=== PATIENT | male | born 2000 | race Two or more races ===

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

== ENCOUNTER 2021-03-10 12:33 | Emergency (ER) | payer OTHER, SELFPAY ==
[2021-03-10 12:55] VITALS: BP 124/81; PULSE 91; RESP 16; TEMP 36.9; O2SAT 98; BMI 32.5
--- NOTE | 2021-03-10 13:26 | ED_ITS ---
HPI - Ear Problem General Chief complaint: Ear Problems Stated complaint: Ear Pain Time Seen by Provider: 03/10/21 13:26 Source: patient Mode of arrival: ambulatory Limitations: no limitations History of Present Illness HPI Narrative: 21 y/o male presenting with left ear pain and clogging sensation with decreased hearing for the last few days. He has had issues with ear wax in the past and has been using Deborx drops without effect. He denies pain, fever, chills, drainage, headache, tooth ache, or nasal congestion. Left ear is worse than the right. MD Complaint: decreased hearing and foreign body Location: bilateral Duration: constant Severity: moderate Relieving factors: nothing Exacerbating factors: nothing Discharge from ear: no Associated symptoms ear: decreased hearing Treatment prior to arrival: eardrops and attempt at ear wax removal Related Data Previous Rx's Medication Instructions Recorded cholecalciferol (vitamin D3) 25 25 mcg PO DAILY 90 Days #90 cap 12/06/20 mcg (1,000 unit) capsule Allergies Allergy/AdvReac Type Severity Reaction Status Date / Time No Known Allergies Allergy Verified 12/06/20 17:13 Review of Systems Review of Systems: Constitutional: No Fever, No Chills ENT/Mouth: No sore throat, No Rhinorrhea, No Swallowing Difficulty, +decreased hearing Eyes: No Eye Pain, No Swelling, No Redness Cardiovascular: No Chest Pain, No SOB Respiratory: No Cough, No Sputum Skin: No Skin Lesions, No rash Neuro: No Weakness, No Numbness, No Dizziness, No Headache Heme/Lymph: No Lymphadenopathy PMFSH Past Medical History Attestation statement: The following information was validated with the patient. Medical History Chronic sinusitis Hypovitaminosis D Mild asthma Obese Tachycardia Surgical History History of tonsillectomy Family History Family History Mother Diabetes Hypertension Father No problems noted. Paternal Grandmother Cancer Paternal Grandfather Cancer Paternal Aunt Cancer Social History Social History (Updated 12/06/20 @ 17:14 by Noemy Kendrick MD) Alcohol intake: never Advance Directives: No Advance Directives Information Provided: No Physical Exam Vital Signs: Vital Signs: Last Vital Signs Temp 98.5 F 03/10/21 12:55 Pulse 91 03/10/21 12:55 Resp 16 03/10/21 12:55 BP 124/81 03/10/21 12:55 Pulse Ox 98 03/10/21 12:55 Body Mass Index 32.5 Appearance: Alert. Oriented X3. No acute distress. Eyes: Pupils equal, round and reactive to light. ENT: Pharynx normal. Bilateral cerumen impaction. Unable to visualize TM. Neck: Normal inspection. Neck supple. No LAD. CVS: Normal heart rate and rhythm. Pulses normal. Respiratory: No respiratory distress. Breath sounds normal. Skin: Skin warm and dry. Normal skin color. Normal skin turgor. No rashes. Neuro: Oriented X 3. No motor deficit. No sensory deficit. Course Course Course Narrative: 21 y/o male presenting with decreased hearing and clogging in his ears. Exam with bilateral cerumen impaction. Successful removal. Stable f or d/c home. Procedures Ear Wax Removal Both Ears: Cerumenolytic Used: Colace Results: Re-examined: cerumen removed completely TM Examination: TM(s) intact, normal appearance Ear Canal Exam: bleeding Noted Patient Tolerated Procedure: well Complications: no problems Technique: ear canal irrigated Discharge Plan Discharge Clinical Impression: Bilateral impacted cerumen Patient Disposition: Home, Self-Care Instructions: Carbamide Peroxide (Into the ear) Additional Instructions: Continue to use the Debrox drops in 2 days. Do not use anything in your ears for the next 2 days. Follow up with your doctor as needed. Prescriptions: No Action cholecalciferol (vitamin D3) 25 mcg (1,000 unit) capsule 25 mcg PO DAILY 90 Days Qty: 90 RF: 3
[2021-03-10] MEDS: Docusate Sodium 100 MG/10 ML LIQUID PO (13:44)
== END 2021-03-10 15:09 | disposition home or self-care (01) ==
PROVIDERS: Emergency Provider Emergency Medicine Emergency Medical Services; PCP Internal Medicine
DX: H61.23 Impacted cerumen, bilateral (principal)
CPT/HCPCS: 69209; 99283

== ENCOUNTER → 2021-04-23 09:01 | Outpatient (BNVA) | payer OTHER, SELFPAY | PROVIDERS: PCP Internal Medicine; Referring Provider Internal Medicine; Visit Provider Internal Medicine | DX: R00.0 Tachycardia, unspecified (principal); R00.2 Palpitations; E66.09 Other obesity due to excess calories; Z68.32 Body mass index [BMI] 32.0-32.9, adult | CPT/HCPCS: 99202 ==

== ENCOUNTER → 2021-06-14 12:52 | Outpatient (REF) | payer OTHER, SELFPAY ==
--- NOTE | 2021-06-14 12:57 | CA_ITS ---
Transthoracic Echocardiogram Patient (Last, First, Middle): Chavo Restrepo, Gender: Male Date of : 2000 Age: 21 Procedure Date: 06/14/2021 Procedure Type: Transthoracic Echocardiogram Location: OP Height: 175.26 cm Weight: 97.98 kg BSA: 2.13 m2 Heart Rate: bpm BP: 110 / 70 mmHg Key Account Representative: KATELYN/CARLEY Referring MD: Donny Vargas MD Symptoms: R00.0 - Tachycardia, unspecified Study Quality: Good ECG Rhythm: Sinus Conclusions: - The left ventricular systolic function is low normal. The calculated ejection fraction is 54% by biplane method. - No obvious valvular pathology seen on this study. Findings Left Ventricle Normal left ventricular cavity size. There is normal left ventricular wall thickness. The left ventricular systolic function is low normal. The calculated ejection fraction is 54% by biplane method. There is no evidence of regional wall motion abnormalities. LV peak GLS -16.4%. Right Ventricle Normal right ventricular cavity size and systolic function. Atria Both atria are normal in size. Aortic Valve There is a normal trileaflet aortic valve. There is no aortic valve stenosis. There is no aortic valve regurgitation. Mitral Valve The mitral valve appears normal. There is no mitral valve regurgitation. There is no mitral valve stenosis. Pulmonic Valve The pulmonic valve was not well visualized. Tricuspid Valve Normal tricuspid valve structure. There is trace tricuspid valve regurgitation. The pulmonary artery systolic pressure is normal. Great Vessels The aortic annulus, sinuses of valsalva, asc aorta, and aortic arch are normal in size. Venous The inferior vena cava is normal in size and collapses greater than 50% with inspiration. Pericardium/Pleural There is no evidence of pericardial effusion. Prior Study Comparison No prior study available for comparison. Recommendations, Care & Conclusions No obvious valvular pathology seen on this study. Measurements 2D Linear Measurements IVSd: 0.71 0.6-0.9/0.6-1.0 cm LVIDd: 4.30 3.9-5.3/4.2-5.9 cm LVIDd Index: 2.02 2.4-3.2/2.2-3.1 cm/m2 LVIDs: 2.88 2.0-3.6 cm LVPWd: 0.70 0.7-1.1 cm Ao Root: 2.80 2.1-3.5 cm LA Diam: 3.20 2.7-3.8/3.0-4.0 cm LAIDs Index: 1.50 1.5-2.3 cm/m2 LV Mass: 110.42 67-162/88-224 g LV Mass Index: 51.84 43-95/49-115 g/m2 LVOT Diam: 2.00 3.0+(-)1.3 cm 2D Systolic Function EF 4C: 51.70 >55% EF 2C: 54.20 >55% EF BiP: 53.80 >55% Mitral Valve MV Pk E: 0.95 MV PK A: 0.72 MV Decel Time: 151.00 E/A: 1.30 E'Lateral: 16.30 E'Medial: 9.90 E/E' Med: 9.60 E/E' Lat: 5.80 PHT: 44.00 MVA PHT: 5.00 Decel [place]: 6.26 Aortic Valve AoV Pk Adelfo: 1.34 AoV Mn Adelfo: 0.93 AoV VTI: 0.24 AoV Pk Grad: 7.00 Aov Mn Grad: 4.00 ADAMARIS Cont.VTI: 2.68 LVOT LVOT Pk Adelfo: 1.17 LVOT Mn Adelfo: 0.87 LVOT VTI: 0.21 LVOT Pk Grad: 5.00 LVOT Mn Grad: 3.00 LVOT Diam: 2.00 LVOT Area: 3.14 Diastolic Function MV Pk E: 0.95 MV Pk A: 0.72 E/A: 1.30 E'Medial: 9.90 E/E' Med: 9.60 E' Laterial: 16.30 E/E' Lat: 5.80 Right Ventricle TAPSE (mm): 1.84 TVS' Adelfo: 11.40 Tricuspid Valve TR Pk Adelfo: 1.41 TR Pk Grad: 8.00 RA Press: 3.00 RVSP: 11.00 Great Vessels Aorta Ao Root-2D: 2.80 2.0-3.7 cm Ao Asc: 2.90 2.1-3.4 cm Ao Arch: 2.20 Updated in Other Vendor System with Status of Final Donny Vargas MD electronically signed on 06/15/2021 2:00:26 PM with status of Final
== END ==
LOC: HO.CARD 12:52
PROVIDERS: PCP Internal Medicine; Visit Provider Internal Medicine
DX: R00.0 Tachycardia, unspecified (principal)
CPT/HCPCS: 93306

== ENCOUNTER → 2021-06-26 13:07 | Outpatient (BNVA) | payer OTHER, SELFPAY | PROVIDERS: PCP Internal Medicine; Referring Provider Internal Medicine; Visit Provider Nurse Practitioner Family | DX: E66.09 Other obesity due to excess calories (principal); R00.0 Tachycardia, unspecified; R00.2 Palpitations; Z68.32 Body mass index [BMI] 32.0-32.9, adult | CPT/HCPCS: 99212 ==

== ENCOUNTER 2021-11-06 07:51 | Outpatient (REF) | payer OTHER, SELFPAY ==
[2021-11-06 08:12] LABS: MANUAL DIFF FLAG NO
[2021-11-06 08:45] LABS: Basophils Percent Auto 0.2 % (0-2); Eosinophils Absolute Auto 0.2 X10*3/uL (0.0-0.4); Eosinophils Percent Auto 2.3 % (0-4); Hemoglobin 15.7 g/dl (14.0-18.0); Imm Gran Abs Auto 0.01 X10*3/uL (0.00-0.03); Imm Gran Pct Auto 0.1 % (0.0-0.4); Lymphocytes Absolute Auto 3.1 X10*3/uL (1.2-4.9); Lymphocytes Percent Auto 34.7 % (20-40); Mean Corpuscular HGB Conc 31.4 g/dl (31.0-36.0); Mean Corpuscular Hemoglobin 24.8 pg (27.0-33.0); Mean Corpuscular Volume 79.1 fL (80.0-98.0); Mean Platelet Volume 11.7 fL (9.4-12.4); Monocytes Absolute Auto 0.7 X10*3/uL (0.1-1.2); Monocytes Percent Auto 8.2 % (2-11); Neutrophils Absolute Auto 4.8 x10*3/uL (2.0-8.3); Neutrophils Percent Auto 54.5 % (45-73); Platelet Count 273 X10*3/uL (160-400); Red Blood Count 6.32 X10*6/uL (4.60-5.80); Red Cell Distribution Width 15.3 % (11.0-16.0); White Blood Count 8.8 X10*3/uL (4.8-10.8)
[2021-11-06 09:05] LABS: Alanine Aminotransferase 33 U/L (0-40); Albumin Level 4.8 g/dL (3.5-5.0); Alkaline Phosphatase 98 U/L (39-117); Anion Gap 13 (12-20); Aspartate Amino Transferase 19 U/L (5-37); Bilirubin Total 0.5 mg/dL (0.0-1.0); Blood Urea Nitrogen 11 mg/dL (9-16); Calcium 9.9 mg/dL (8.4-10.2); Carbon Dioxide 27 mmol/L (22-29); Chloride 104 mmol/L (96-108); Cholesterol 176 mg/dL; Estimated Glomerular Filt Rate > 60; Glucose Fasting 82 mg/dL (60-99); HDL Cholesterol 37 mg/dL; LDL Cholesterol Calculated 127 mg/dl; Potassium 4.3 mmol/L (3.3-5.1); Sodium 140 mmol/L (135-145); Total Protein 7.6 g/dL (6.5-8.0); Triglycerides 61 mg/dL
[2021-11-11 13:42] LABS: Vitamin D 25-OH, D2 <4 ng/mL; Vitamin D 25-OH, D3 30 ng/mL; Vitamin D 25-OH, Total 30 ng/mL (30-100)
== END 2021-11-06 07:52 | disposition home or self-care (01) ==
LOC: HO.LAB 07:51
PROVIDERS: PCP Internal Medicine; Visit Provider Internal Medicine
DX: Z00.00 Encounter for general adult medical examination without abnormal findings (principal); E55.9 Vitamin D deficiency, unspecified; E78.5 Hyperlipidemia, unspecified; R42 Dizziness and giddiness
CPT/HCPCS: 36415; 80053; 80061; 82306; 85025

== ENCOUNTER → 2021-12-03 08:55 | Outpatient (REF) | payer OTHER, SELFPAY ==
--- NOTE | 2021-12-03 09:06 | CA_ITS ---
Transthoracic Echocardiogram Patient (Last, First, Middle): Chavo Restrepo, Gender: Male Date of : 2000 Age: 21 Procedure Date: 12/03/2021 Procedure Type: Transthoracic Echocardiogram Location: OP Height: 175.26 cm Weight: 113.4 kg BSA: 2.27 m2 Heart Rate: bpm BP: 110 / 70 mmHg Md Senior Research Scientist: SB Referring MD: Jaky Azevedo PIE FILLING MIXERScott Symptoms: R00.2 - Palpitations Study Quality: Good ECG Rhythm: Sinus Conclusions: - The left ventricular systolic function is normal. The visually estimated ejection fraction is between 55-60%. - There is mildly decreased right ventricular systolic function. Findings Left Ventricle Normal left ventricular cavity size. There is normal left ventricular wall thickness. The left ventricular systolic function is normal. The visually estimated ejection fraction is between 55-60%. There is no evidence of regional wall motion abnormalities. Diastolic function is normal for age. LV peak GLS -16.3% (mildly reduced). Right Ventricle Normal right ventricular cavity size. There is mildly decreased right ventricular systolic function. Venous The inferior vena cava is normal in size and collapses greater than 50% with inspiration. Prior Study Comparison Changes noted compared to prior study dated: 06/14/2021. RV systolic function slightly reduced. Measurements 2D Linear Measurements IVSd: 0.89 0.6-0.9/0.6-1.0 cm LVIDd: 4.82 3.9-5.3/4.2-5.9 cm LVIDd Index: 2.12 2.4-3.2/2.2-3.1 cm/m2 LVIDs: 3.37 2.0-3.6 cm LVPWd: 0.67 0.7-1.1 cm LV Mass: 154.26 67-162/88-224 g LV Mass Index: 67.96 43-95/49-115 g/m2 Mitral Valve MV Pk E: 0.77 MV PK A: 0.60 MV Decel Time: 133.00 E/A: 1.30 E'Lateral: 12.90 E'Medial: 10.10 E/E' Med: 7.60 E/E' Lat: 5.90 PHT: 39.00 MVA PHT: 5.64 Decel [place]: 5.76 Diastolic Function MV Pk E: 0.77 MV Pk A: 0.60 E/A: 1.30 E'Medial: 10.10 E/E' Med: 7.60 E' Laterial: 12.90 E/E' Lat: 5.90 Right Ventricle TAPSE (mm): 15.10 TVS' Adelfo: 10.60 Tricuspid Valve RA Press: 3.00 Updated in Other Vendor System with Status of Final Donny Vargas MD electronically signed on 12/03/2021 10:16:12 AM with status of Final
== END ==
LOC: HO.CARD 08:55
PROVIDERS: PCP Internal Medicine; Visit Provider Nurse Practitioner Family
DX: R00.2 Palpitations (principal); R00.0 Tachycardia, unspecified
CPT/HCPCS: 93308; 93356

== ENCOUNTER → 2022-02-27 12:48 | Outpatient (BNVA) | payer OTHER, SELFPAY | PROVIDERS: PCP Internal Medicine; Referring Provider Internal Medicine; Visit Provider Internal Medicine | DX: R00.0 Tachycardia, unspecified (principal); R00.2 Palpitations; E66.09 Other obesity due to excess calories; Z68.32 Body mass index [BMI] 32.0-32.9, adult | CPT/HCPCS: 93005; 99212 ==

== ENCOUNTER 2022-10-02 12:38 | Outpatient (REF) | payer OTHER, SELFPAY ==
[2022-10-02 13:46] LABS: Influenza A PCR NEGATIVE (Negative); Influenza B PCR NEGATIVE (Negative); Resp Syncy Virus RNA Qual PCR NEGATIVE (Negative); SARS COV2 PCR INHOUSE NEGATIVE (Negative)
== END 2022-10-02 12:39 | disposition home or self-care (01) ==
LOC: HO.LAB 12:38
PROVIDERS: Visit Provider Internal Medicine
DX: R09.89 Other specified symptoms and signs involving the circulatory and respiratory systems (principal); Z20.822 Contact with and (suspected) exposure to COVID-19
CPT/HCPCS: 0241U

== ENCOUNTER → 2022-12-31 12:55 | Outpatient (REF) | payer OTHER, SELFPAY ==
--- NOTE | 2022-12-31 12:57 | CA_ITS ---
Transthoracic Echocardiogram Patient (Last, First, Middle): Chavo Restrepo, Gender: Male Date of : 2000 Age: 22 Procedure Date: 12/31/2022 Procedure Type: Transthoracic Echocardiogram Location: OP Height: 175.26 cm Weight: 99.79 kg BSA: 2.15 m2 Heart Rate: bpm BP: 120 / 70 mmHg Administrative Law Judge: CARLEY Referring MD: Donny Vargas MD Environmental Professional: Eliot Sylvester MD Symptoms: I42.9 - Cardiomyopathy, unspecified Study Quality: Adequate ECG Rhythm: Sinus Conclusions: - 1. Normal measured LV ejection fraction 55-60% with mildly reduced global longitudinal strain with normal diastolic filling pattern 2. Normal cardiac valvular Doppler 3. Normal RV systolic pressure 4. No gross pericardial effusion Findings Left Ventricle Normal left ventricular size, thickness, and systolic function. The visually estimated ejection fraction is between 55-60%. Spectral Doppler is indicative of a normal filling pattern. Peak GLS is -16.6%, which is mildly reduced. Right Ventricle Normal right ventricular cavity size and systolic function. Atria Both atria are normal in size. Interatrial shunt cannot be excluded. Aortic Valve Normal aortic valve structure and function. There is no aortic valve stenosis. There is no aortic valve regurgitation. Mitral Valve Normal mitral valve structure and function. There is trace mitral valve regurgitation. There is no mitral valve stenosis. Pulmonic Valve The pulmonic valve is likely normal. Tricuspid Valve Normal tricuspid valve structure. There is trace tricuspid valve regurgitation. The right ventricular systolic pressure is normal. The right ventricular systolic pressure is 20 mmHg. Normal right atrial pressure. There is no evidence of pulmonary hypertension. Great Vessels All visible segments of the aorta are normal in size. The pulmonary artery was not well visualized. Venous The inferior vena cava is normal in size and collapses greater than 50% with inspiration. Pericardium/Pleural There is no evidence of pericardial effusion. Prior Study Comparison No significant change compared to prior study dated: 12/03/2021. Measurements 2D Linear Measurements IVSd: 0.90 0.6-0.9/0.6-1.0 cm LVIDd: 4.73 3.9-5.3/4.2-5.9 cm LVIDd Index: 2.20 2.4-3.2/2.2-3.1 cm/m2 LVIDs: 3.52 2.0-3.6 cm LVPWd: 0.88 0.7-1.1 cm LA Diam: 3.70 2.7-3.8/3.0-4.0 cm LAIDs Index: 1.72 1.5-2.3 cm/m2 LV Mass: 177.27 67-162/88-224 g LV Mass Index: 82.45 43-95/49-115 g/m2 LVOT Diam: 2.00 3.0+(-)1.3 cm 2D Systolic Function EF 4C: 59.50 >55% EF 2C: 55.80 >55% EF BiP: 57.80 >55% Mitral Valve MV Pk E: 1.02 MV PK A: 0.46 MV Decel Time: 166.00 E/A: 2.20 E'Lateral: 14.80 E'Medial: 7.72 E/E' Med: 13.20 E/E' Lat: 6.90 PHT: 49.00 MVA PHT: 4.49 Decel [place]: 6.14 Aortic Valve AoV Pk Adelfo: 1.19 AoV Mn Adelfo: 0.86 AoV VTI: 0.26 AoV Pk Grad: 6.00 Aov Mn Grad: 3.00 ADAMARIS Cont.VTI: 2.37 LVOT LVOT Pk Adelfo: 0.97 LVOT Mn Adelfo: 0.69 LVOT VTI: 0.20 LVOT Pk Grad: 4.00 LVOT Mn Grad: 2.00 LVOT Diam: 2.00 LVOT Area: 3.14 Diastolic Function MV Pk E: 1.02 MV Pk A: 0.46 E/A: 2.20 E'Medial: 7.72 E/E' Med: 13.20 E' Laterial: 14.80 E/E' Lat: 6.90 Right Ventricle TAPSE (mm): 22.40 TVS' Adelfo: 10.30 Tricuspid Valve TR Pk Adelfo: 2.08 TR Pk Grad: 17.00 RA Press: 3.00 RVSP: 20.00 Great Vessels Aorta Sinus of Valsalva: 2.77 2.0-3.[address] [place]: 2.18 1.7-3.4 cm Ao Asc: 2.30 2.1-3.4 cm Updated in Other Vendor System with Status of Final Eliot Sylvester MD electronically signed on 01/01/2023 5:11:05 PM with status of Final
== END ==
LOC: HO.CARD 12:55
PROVIDERS: PCP Internal Medicine; Visit Provider Internal Medicine
DX: I42.9 Cardiomyopathy, unspecified (principal)
CPT/HCPCS: 93306; 93356

== ENCOUNTER 2023-01-14 13:00 | Outpatient (RCR) | payer OTHER, SELFPAY ==
--- NOTE | 2022-12-13 12:00 | MHC.PT.EP ---
[facility] [place] Office [place] Office [place] Office [address] Addison Stephenson [address] [phone] F: [phone] F: [phone] F: [phone] F: [phone] Physical Therapy Plan of Care Date of Evaluation: Date of Surgery: Diagnosis: low back pain Assessment: Patient is a 22 year old R handed male who presents with s/s consistent with low back pain. 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 Patient past medical history is unremarkable. Current impairments include pain, posture, ROM, strength, flexibility, body mechanics, activity tolerance and functional mobility. Functional limitations include decreased ability to walk, stand, lift, carry, push, pull, sit and work. Patient is motivated with good rehab potential. Skilled PT will address impairments and functional limitations in order to achieve goals. Frequency and Duration: The patient will be seen 2x/week for 5 weeks Short Term Goals: I with HEP - 2 weeks demo proper body mechanics with all transfers without cues - 3 weeks 90/90 lacking 20 or less - 3 weeks stable innom - 3 weeks Usp Goals: Demo improved core stab - 5 weeks Improved work tolerance, standing, walking, sitting - 5 weeks Oswestry 20% or better - 5 weeks hip strength 4+/5 grossly - 5 weeks Treatment Plan: Modalities to reduce pain, spasms and effusion. Manual therapy to restore motion and function. Therapeutic exercise to improve strength and flexibility. Neuromuscular re-education for posture and balance. Therapeutic activities to return to functional activities of daily living. Electronically signed by: Maximo Funk, PT Please sign and return to therapist. Thank you for your referral.
--- NOTE | 2023-02-07 08:18 | MHC.PT.DC ---
[facility] [place] Office [place] Office [place] Office [address] Addison Stephenson [address] [phone] F: [phone] F: [phone] F: [phone] F: [phone] Physical Therapy Discharge Report Diagnosis: low back pain Date of Surgery: Date of Evaluation: 12/13/22 Date of Discharge: 02/07/23 Treatments to Date: 8 Cancellations to Date: No Shows to Date: Discharge Status: Visit Non-compliance Discharge Summary: Patient with multiple no shows and cancellations, DC'd due to poor compliance with facility attendance policy. Patient has an HEP to continue on own. Per last tx note, patient was progressing well and did not have pain. Electronically signed by: Kecia Bedoya PT Please sign and return to therapist. Thank you for your referral.
== END 2023-02-07 08:18 | disposition home or self-care (01) ==
LOC: HO.PTCHIC 13:00
PROVIDERS: PCP Internal Medicine; Visit Provider Internal Medicine
DX: M54.50 Low back pain, unspecified (principal)
CPT/HCPCS: 97110; 97161

== ENCOUNTER 2023-02-27 12:24 | Outpatient (AMB) | payer OTHER, SELFPAY ==
--- NOTE | 2023-02-27 12:33 | A.OFFVIS_ITS ---
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 In the past, he was seen in consultation regarding tachycardia. He was describing symptoms of heart racing with physical activities like climbing stairs and some shortness of breath. Obese as well as with sedentary lifestyle. However no major comorbidities otherwise. No history of any cardiomyopathy or congestive heart failure or anything else cardiac related. No significant family history for cardiac issues either. His cardiac testing at shown mildly diminished myocardial strain but normal LVEF. Overall, he feels fine. He states he really does not have any cardiac symptoms these days. Getting along okay. [facility] Medical History Chronic sinusitis Dizziness Hypovitaminosis D Mild asthma Obese Physical exam Tachycardia Surgical History History of tonsillectomy Family History Mother Diabetes Hypertension Father No problems noted. Paternal Grandmother Cancer Paternal Grandfather Cancer Paternal Aunt Cancer Social History Housing: Apartment Alcohol intake: never Patient Tobacco Use Status: Never used Tobacco e-Cigarette/Vaping Use: Never Used Second Hand Smoke Exposure: No service: No Current occupational status: employed Current occupational exposures/hazards: No Cognitive needs: No Hearing needs: No Vision needs: No Review of Systems Const Denies weakness ENT Denies dizziness Card Denies chest pain, Denies chest pain with activity, Denies syncope, Denies rapid heart rate, Denies pedal edema, Denies edema, Denies leg edema, Denies lightheadedness, Denies palpitations, Denies dyspnea, Denies dyspnea on exertion and Denies orthopnea Resp Denies cough, Denies dyspnea and Denies dyspnea on exertion GI Denies hematochezia and Denies change in stool character Musc Denies abnormal gait, Denies muscle cramps, Denies muscle weakness, Denies numbness, Denies radiating pain into limb and Denies tingling Neuro Denies abnormal gait, Denies dizziness, Denies syncope, Denies numbness, Denies tingling and Denies weakness Endo Denies palpitations Physical Exam Vital Signs: Last Vital Signs Pulse 66 02/27/23 12:34 BP 112/78 02/27/23 12:34 BMI result Body Mass Index 36.6 Const General: comfortable and no acute distress Orientation/consciousness: patient oriented x3 HEENT Other: Unremarkable Head: Yes normal to inspection Neck Neck: Yes normal visual inspection Chest Chest palpation & inspection: normal inspection of the chest Resp Auscultation: clear to auscultation bilaterally Cardio Palpation: normal PMI Heart sounds: S1 normal heart sound present, S2 normal heart sound present, no gallops, no murmurs and no rubs GI Palpation (GI): Soft to palpation Back/Spine/Pelvis Other: unremarkable Skin General skin exam: no rashes or lesions noted Neuro General: patient oriented x3 Extrem General: Yes normal to inspection Psych Mental Status: mental status grossly normal Office Procedures EKG Details: EKG with sinus rhythm, sinus arrhythmia; no significant ST-T changes and otherwise unremarkable. [place]. [id number], Complete Assessment & Plan Assessment & Plan (1) Abnormal cardiovascular function study: Code(s): R94.30 - Abnormal result of cardiovascular function study, unspecified (2) Obese: Code(s): E66.9 - Obesity, unspecified Qualifiers: Body mass index: BMI 32.0-32.9 Obesity classification: adult class 1 (BMI 30 - 34.9) Obesity type: due to excess calories Serious obesity comorbidity presence: without serious comorbidity Qualified Code(s): E66.09 - Other obesity due to excess calories; Z68.32 - Body mass index [BMI] 32.0-32.9, adult Plan Cardiac studies reviewed. Echocardiogram with LVEF 55-60%. Peak global longitudinal strain is-16.6%, slightly reduced. It has been in this range in the previous studies as well. In the Holter monitor, underlying rhythm was sinus with an average rate of 92/Min; there was sinus tachycardia but no other significant arrhythmias. Fatigue in diary was associated with sinus rhythm rather. Overall, slightly reduced myocardial strain, but otherwise unremarkable cardiac testing. Not clear if it is a true reduction or if there is any technical component. Overall, reassurance only. Hopefully can lose some weight and get some conditioning. Increase physical activity as much able. We will reassess him in 2 years with another echocardiogram with strain assessment. Coding Level of Care Code Est Pt Level 3 (70890) Diagnoses Abnormal cardiovascular function study R94.30 Obese E66.09; Z68.32 Body mass index: BMI 32.0-32.9 Obesity classification: adult class 1 (BMI 30 - 34.9) Obesity type: due to excess calories Serious obesity comorbidity presence: without serious comorbidity CPT Codes EKG - CPT: 13544-[id number], Complete ([id number])
[2023-02-27 12:34] VITALS: BP 112/78; PULSE 66; BMI 36.6
== END 2023-02-27 12:48 | disposition home or self-care (01) ==
PROVIDERS: Visit Provider Internal Medicine
DX: R94.30 Abnormal result of cardiovascular function study, unspecified (principal); E66.09 Other obesity due to excess calories; Z68.32 Body mass index [BMI] 32.0-32.9, adult
CPT/HCPCS: 93010; 99213

== ENCOUNTER → 2023-02-27 12:24 | Outpatient (BNVA) | payer OTHER, SELFPAY | PROVIDERS: Visit Provider Internal Medicine | DX: R94.30 Abnormal result of cardiovascular function study, unspecified (principal); E66.09 Other obesity due to excess calories; Z68.36 Body mass index [BMI] 36.0-36.9, adult | CPT/HCPCS: 93005; 99212 ==

== ENCOUNTER 2023-03-06 15:32 | Outpatient (AMB) | payer OTHER, SELFPAY ==
--- NOTE | 2023-03-06 15:34 | MHC.PC.OV ---
Vital Signs 03/06/23 15:35 Height 5 ft 9 in Weight 249 lb BMI 36.8 BP 120/84 Blood Pressure Location Lt brachial Position Sitting Intake Visit Reasons: Personal reason Intake Note: Patient here c/o right ear blockage, dizziness Sap Administrator Required: No Accompanied by: Mother Allergies No Known Allergies Allergy (Verified 03/06/23 16:07) Medication List - Last Reconciled 03/06/23 by Noemy Kendrick MD cholecalciferol (vitamin D3) (Vitamin D3) 25 mcg PO DAILY Tobacco use date assessed: 10/16/22 Dental Screening Dental Screen Date: 03/06/23 Did you have a dental visit in the last 12 months?: Yes Did you have a dental problem in the last 6 months where you did not have access to dental care?: No Was dental information given to patient?: Patient has dentist HPI HPI Comments History of Present Illness Details This is a 23-year-old male that comes accompanied by mother complaining of ear discomfort and right hearing loss that has been present for few weeks. He also has low vitamin-D and is taking supplements. No ear pain. [facility] Medical History (Updated 03/06/23 @ 16:13 by Noemy Kendrick MD) Chronic sinusitis Dizziness Hypovitaminosis D Mild asthma Obese Physical exam Tachycardia Surgical History History of tonsillectomy Family History Mother Diabetes Hypertension Father No problems noted. Paternal Grandmother Cancer Paternal Grandfather Cancer Paternal Aunt Cancer Social History Housing: Apartment Alcohol intake: never Patient Tobacco Use Status: Never used Tobacco e-Cigarette/Vaping Use: Never Used Second Hand Smoke Exposure: No service: No Current occupational status: employed Current occupational exposures/hazards: No Cognitive needs: No Hearing needs: No Vision needs: No Questionnaire Thrive Questionnaire Date Thrive assessed: 10/16/22 JUNI-7 AMB Questionnaire JUNI-7 Date JUNI - 7 assessed: 10/16/22 Source: Developed by Drs. Kentrell Smith, Fifi Reis, Bolivar Coyne and colleagues, with an educational kimberly from [employer]. Review of Systems Const All systems reviewed & are unremarkable except as noted in HPI and below Eyes Reports no additional complaints, Denies change in vision and Denies other visual disturbances Card Denies chest pain at rest, Denies chest pain with activity, Denies edema, Denies irregular heart rhythm, Denies claudication, Denies dyspnea, Denies dyspnea on exertion, Denies orthopnea, Denies paroxysmal nocturnal dyspnea and Denies slow heart rate Resp Denies cough, Denies dyspnea and Denies dyspnea on exertion GI Denies abdominal pain, Denies change in bowel habits, Denies excessive flatus, Denies nausea and Denies vomiting Denies urinary hesitancy, Denies urinary incontinence and Denies urinary urgency Musc Denies abnormal gait, Denies atrophy, Denies deformity and Denies limited range of motion Skin/Breast Denies bleeding lesions, Denies changing lesions and Denies rash Neuro Denies abnormal gait and Denies lack of coordination Physical exam (Primary Care) Vital Signs: Last Vital Signs BP 120/84 03/06/23 15:35 BMI result Body Mass Index 36.8 Tobacco/Smoking Status: Tobacco use Status Tobacco use date assessed 10/16/22 03/06/23 15:38 Patient Tobacco Use Status Never used Tobacco 03/06/23 15:38 e-Cigarette/Vaping Use Never Used 03/06/23 15:38 Thrive Assessment: Date of Thrive Assessment Date Thrive assessed 10/16/22 03/06/23 15:38 [facility] Ears: external ears normal and TM abnormal dull Eyes General: appearance normal, both eyes and all related structures Eyelids: Yes eyelids normal Conjunctivae: conjunctivae normal Neck Neck: Yes normal visual inspection and Yes supple Resp Effort & Inspection: normal respiratory effort Auscultation: clear to auscultation bilaterally Cardio Jugular venous distension: no JVD Rate: regular rate Rhythm: regular rhythm Heart sounds: S1 normal heart sound present and S2 normal heart sound present Extrem General: Yes full ROM Assessment and Plan Assessment & Plan (1) Hearing loss, right: Code(s): H91.91 - Unspecified hearing loss, right ear Plan: Hearing test ordered. Referred to ENT. (2) Hypovitaminosis D: Code(s): E55.9 - Vitamin D deficiency, unspecified Plan: Continue vitamin-D supplements Orders: Referrals Ear/Nose/Throat Referral H91.91 - Unspecified hearing loss, right ear, H92.09 - Otalgia, unspecified ear Speech and Hearing Referral H91.91 - Unspecified hearing loss, right ear Medications: New amoxicillin-pot clavulanate 875-125 mg 1 tab PO BID 14 tabs 0RF 7 days Coding Level of Care Code Est Pt Level 3 (05049) Diagnoses Hearing loss, right H91.91 Hypovitaminosis D E55.9 Time Spent (min) 17
[2023-03-06 15:35] VITALS: BP 120/84; BMI 36.8
== END 2023-03-06 16:18 | disposition home or self-care (01) ==
PROVIDERS: PCP Internal Medicine; Visit Provider Internal Medicine
DX: H91.91 Unspecified hearing loss, right ear (principal); E55.9 Vitamin D deficiency, unspecified
CPT/HCPCS: 99213

== ENCOUNTER 2023-04-16 11:42 | Outpatient (AMB) | payer OTHER, SELFPAY ==
--- NOTE | 2023-04-16 12:19 | AM.OFFWIN_ITS ---
Intake Vital Signs 04/16/23 12:27 Weight 254 lb BP 116/78 Blood Pressure Location Lt brachial Position Sitting Pulse 105 H Pulse Source Pulse Oximeter Temp 97.2 F Temp Source Temporal Artery Scan Pulse Oximetry (%) 96 Oxygen Delivery Method Room Air Intake Visit Reasons: EP Sore throat/Congestion/fever [phone] Intake Note: Patient here sore throat, fever,congestion and cough which has been present since friday. Patient Tobacco Use Status: Never used Tobacco Allergies No Known Allergies Allergy (Verified 04/16/23 12:20) Do you need a note to return to daycare/school/sports/work: No HPI EP Sore throat/Congestion/fever [phone] HPI Details Patient presents for a sick visit. Reporting symptoms of sinus congest ion, sore throat and difficulty swallowing. Low-grade fever. No family member is sick. No recent travel. Patient reports symptoms of malaise and fatigue. [facility] Medical History Chronic sinusitis Dizziness Hypovitaminosis D Mild asthma Obese Physical exam Tachycardia Surgical History History of tonsillectomy Family History Mother Diabetes Hypertension Father No problems noted. Paternal Grandmother Cancer Paternal Grandfather Cancer Paternal Aunt Cancer Social History Housing: Apartment Alcohol intake: never Patient Tobacco Use Status: Never used Tobacco e-Cigarette/Vaping Use: Never Used Second Hand Smoke Exposure: No service: No Current occupational status: employed Current occupational exposures/hazards: No Cognitive needs: No Hearing needs: No Vision needs: No Physical Exam Vital Signs: Last Vital Signs Temp 97.2 F 04/16/23 12:27 Pulse 105 H 04/16/23 12:27 BP 116/78 04/16/23 12:27 Pulse Ox 96 04/16/23 12:27 Oxygen Delivery Method Room Air 04/16/23 12:27 Const General: cooperative and healthy appearing Nutritional Appearance: well nourished Orientation/consciousness: patient oriented x3 Limitations: no limitations HEENT Head: Yes normal to inspection Eyes General: appearance normal, both eyes and all related structures Neck Neck: Yes normal visual inspection Chest Chest palpation & inspection: normal palpation of entire chest wall Resp Effort & Inspection: normal respiratory effort Neuro General: patient oriented x3 Results AMB Rapid Strep AMB Rapid Strep Negative Last Edit by Terri Ty CMA on 04/16/23 12:38 Results Reviewed Results Reviewed: Laboratory Last Values Strep Scn Rapid Clinic Negative 04/16/23 12:37 Assessment & Plan Assessment & Plan (1) Upper respiratory tract infection: Code(s): J06.9 - Acute upper respiratory infection, unspecified Qualifiers: URI type: unspecified viral URI Qualified Code(s): J06.9 - Acute upper respiratory infection, unspecified Plan: Increase fluid intake. Tylenol for aches and pains. If symptoms worsen, follow-up here for a recheck. No antibiotics needed. Call patient: Results of viral swab is negative Orders: Orders AMB Rapid Strep Screen Today Z13.9 - Encounter for screening, unspecified Coding Level of Care Code Est Pt Level 3 (27443) Diagnoses Viral upper respiratory tract infection J06.9 URI type: unspecified viral URI
[2023-04-16 12:27] VITALS: BP 116/78; PULSE 105; TEMP 36.2; O2SAT 96
== END 2023-04-16 13:27 | disposition home or self-care (01) ==
PROVIDERS: PCP Internal Medicine; Visit Provider Internal Medicine
DX: J06.9 Acute upper respiratory infection, unspecified (principal); J02.9 Acute pharyngitis, unspecified
CPT/HCPCS: 87880; 99213

== ENCOUNTER 2023-06-27 23:42 | Emergency (ER) | payer OTHER, SELFPAY ==
[2023-06-27 23:51] VITALS: BP 126/57; PULSE 127; RESP 20; TEMP 37.7; O2SAT 97; BMI 36.9
[2023-06-28 00:19] VITALS: TEMP 38
[2023-06-28 00:22] LABS: COVID-19 Test Negative (Negative); IDNOW Serial# 08D9AD1C; IDNOW Serial# 9DB6401D; Strep A Nucleic Acid Negative (Negative)
[2023-06-28 00:23] LABS: IDNOW Serial# BCCEAD1C; Influenza A Negative (Negative); Influenza B2 Negative (Negative)
--- NOTE | 2023-06-28 00:55 | ED_ITS ---
HPI - URI/Sore Throat General Chief Complaint: Upper Respiratory Symptoms Stated Complaint: Sore throat Time Seen by Provider: 06/28/23 00:55 Source: patient Mode of arrival: ambulatory Limitations: no limitations History of Present Illness HPI Narrative: 23-year-old male with history of asthma who presents emergency department for evaluation body aches, sore throat, rhinorrhea, occasional cough x1 day. Patient states that throughout the day yesterday he was feeling fatigued and unwell. States the symptoms got worse therefore came to the emergency department for evaluation. He states he has had subjective fever and chills. He has had a sore throat. He denied chest pain, shortness of breath, dyspnea on exertion, nausea, vomiting or diarrhea. Related Data Home Medications Medication Instructions Recorded Confirmed cholecalciferol (vitamin D3) 25 25 mcg PO DAILY 02/27/23 03/06/23 mcg (1,000 unit) capsule (Vitamin D3) Previous Rx's Medication Instructions Recorded amoxicillin 875 mg-potassium 1 tab PO BID 7 days #14 tabs 03/06/23 clavulanate 125 mg tablet acetaminophen 500 mg tablet 1,000 mg (2 x 500 mg) PO Q6H PRN 06/28/23 (Tylenol Extra Strength) fever or pain #20 tabs ibuprofen 400 mg tablet 400 mg PO TID PRN fever or pain 06/28/23 #30 tabs Allergies Allergy/AdvReac Type Severity Reaction Status Date / Time No Known Allergies Allergy Verified 04/16/23 12:20 Review of Systems Review of Systems: Yes all other systems are reviewed and are negative [facility] Past Medical History [facility], [facility] Narrative: Social history: He denies tobacco, alcohol and drug use. Medical History Dizziness Physical exam Hypovitaminosis D Tachycardia Chronic sinusitis Mild asthma Obese Surgical History History of tonsillectomy Family History Family History Mother Diabetes Hypertension Father No problems noted. Paternal Grandmother Cancer Paternal Grandfather Cancer Paternal Aunt Cancer Social History Housing: Apartment Alcohol intake: never Patient Tobacco Use Status: Never used Tobacco e-Cigarette/Vaping Use: Never Used Second Hand Smoke Exposure: No Advance Directives: No Advance Directives Information Provided: Yes service: No Current occupational status: employed Current occupational exposures/hazards: No Cognitive needs: No Hearing needs: No Vision needs: No Physical Exam Vital Signs: Vital Signs: Last Vital Signs Temp 100.4 F 06/28/23 00:19 Pulse 127 H 06/27/23 23:51 Resp 20 06/27/23 23:51 BP 126/57 L 06/27/23 23:51 Pulse Ox 97 06/27/23 23:51 O2 Del Method Room Air 06/27/23 23:51 BMI result Body Mass Index 36.9 Vital signs were normal pain Exam General: Awake, alert in no distress Head: Normocephalic, atraumatic EENT: PERRL, Lids normal, sclera normal, conjunctiva normal, nose normal , ears normal, throat without erythema or exudates Neck: Supple, no adenopathy, no trachea midline or C-spine tenderness Lung: breath sounds symmetric, no wheezing, rales or rhonchi Chest: symmetric movement, nontender Heart: regular rate and rhythm, normal S1, S2 no murmurs or rubs Abdomen: soft, non-tender, nondistended, normal bowel sounds Back: no vertebral tenderness, no CVAT Extremities: no deformities, moves all extremities symmetrically Neuro: Awake, alert, oriented, normal speech, moves all extremities symmetrically Psych: Pleasant, cooperative Medical Decision Making Medical Decision Making MDM Narrative: 23-year-old male history of asthma who presents emergency department for evaluation of 1 day of fever, chills, myalgias, rhinorrhea and sore throat. Patient's vital signs were normal. Physical examination was unremarkable pain Following evaluation was ordered: COVID-19, influenza, RSV and rapid strep. 01:17 My interpretation patient's laboratory evaluation is as follows: COVID-19, influenza, RSV and rapid strep were negative. Patient's presentation is consistent with a viral syndrome. Patient was treated with ibuprofen 400 mg orally. Patient was given a prescription for ibuprofen and Tylenol. He was given printed and verbal instructions and discharged home He was given a work note. Differential Diagnosis Differential Diagnoses: The differential diagnosis associated with the presentation includes Differential diagnosis includes was not limited to viral URI, bronchitis, pneumonia, viral syndrome, COVID-19, RSV, influenza Lab Data [facility] Lab Attestation statement: I reviewed the patient's lab results. See [facility] Labs: Lab Results 06/28/23 Range/Units 00:03 COVID-19 (KYLE) Negative (Negative) COVID-19 Clin Com See Note Influenza Type A (DONALD) Negative (Negative) Influenza Type B (DONALD) Negative (Negative) Influenza A & B Note See Note S. pyogenes GrpA DONALD Negative (Negative) Prescription Management I considered prescription management with: Pain Medication Chronic Conditions Patient?s care impacted by: Other (Asthma) Discharge Plan Discharge Clinical Impression: Viral syndrome Patient Disposition: Home, Self-Care Instructions: Viral Syndrome (ED) Additional Instructions: Your COVID-19, influenza and RSV tests were negative. Your rapid strep test was negative. Take ibuprofen 200 mg pills, 2 pills every 6 hours as needed for pain or fever. Take Tylenol (acetaminophen) 500 mg pills, 2 pills every 6 hours as needed for pain or fever. Follow-up with your doctor in 2 days. Please return to the emergency department if your symptoms get worse or if you develop any symptoms that are concerning to you. Please see the work note Prescriptions: New acetaminophen [Tylenol Extra Strength] 500 mg tablet 1,000 mg PO Q6H PRN (Reason: fever or pain) Qty: 20 0RF ibuprofen 400 mg tablet 400 mg PO TID PRN (Reason: fever or pain) Qty: 30 0RF No Action amoxicillin-pot clavulanate 875-125 mg tablet 1 tab PO BID 7 Days Qty: 14 0RF cholecalciferol (vitamin D3) [Vitamin D3] 25 mcg (1,000 unit) capsule 25 mcg PO DAILY Stand Alone Forms: Work/School Release
[2023-06-28] MEDS: Ibuprofen 400 MG TABLET PO (01:38)
== END 2023-06-28 01:40 | disposition home or self-care (01) ==
PROVIDERS: Emergency Provider Emergency Medicine Emergency Medical Services; PCP Internal Medicine
DX: B34.9 Viral infection, unspecified (principal); J02.9 Acute pharyngitis, unspecified; Z11.52 Encounter for screening for COVID-19
CPT/HCPCS: 87502; 87635; 87651; 99283

== ENCOUNTER 2023-10-04 17:12 | Emergency (ER) | payer SELFPAY ==
[2023-10-04 17:29] VITALS: BP 127/66; PULSE 81; RESP 18; TEMP 36.6; O2SAT 97; BMI 36.6
--- NOTE | 2023-10-04 17:30 | ED.GENADULT ---
HPI - General Adult General Chief complaint: Upper Respiratory Symptoms Stated complaint: sore throat ,nasal congestion Time Seen by Provider: 10/04/23 18:23 Source: patient, family, RN notes reviewed and old records reviewed Mode of arrival: ambulatory Limitations: no limitations History of Present Illness HPI narrative: 23-year-old male presents for evaluation of a sore throat and left ear pain for the last 2 days. Denies any sick contacts. He did endorses a dry cough and nasal congestion Denies fevers, chills, abdominal pain or vomiting Denies any drainage from the ear Related Data Home Medications Medication Instructions Recorded Confirmed cholecalciferol (vitamin D3) 25 25 mcg PO DAILY 02/27/23 03/06/23 mcg (1,000 unit) capsule (Vitamin D3) Previous Rx's Medication Instructions Recorded amoxicillin 875 mg-potassium 1 tab PO BID 7 days #14 tabs 03/06/23 clavulanate 125 mg tablet acetaminophen 500 mg tablet 1,000 mg (2 x 500 mg) PO Q6H PRN 06/28/23 (Tylenol Extra Strength) fever or pain #20 tabs ibuprofen 400 mg tablet 400 mg PO TID PRN fever or pain 06/28/23 #30 tabs guaifenesin 600 mg tablet, 600 mg PO Q12H PRN congestion 5 07/06/23 extended release 12 hr (Mucinex) days #10 tabs Allergies Allergy/AdvReac Type Severity Reaction Status Date / Time No Known Allergies Allergy Verified 10/04/23 17:32 Review of Systems Constitutional: Constitutional: Denies chills and Denies fever(s) Eyes: Eyes: Denies blurry vision ENT: Denies ear discharge, Reports otalgia and Reports sore throat Cardiovascular: Cardiovascular: Denies chest pain and Denies dyspnea Respiratory: Respiratory: Reports cough and Denies dyspnea Gastrointestinal: Gastrointestinal: Denies abdominal pain, Denies nausea and Denies vomiting Musculoskeletal: Musculoskeletal: Denies back pain Integumentary/Breasts: Skin/Breast: Denies rash PMFSH Past Medical History Medical History Dizziness Physical exam Hypovitaminosis D Tachycardia Chronic sinusitis Mild asthma Obese Surgical History History of tonsillectomy Family History Family History Mother Diabetes Hypertension Father No problems noted. Paternal Grandmother Cancer Paternal Grandfather Cancer Paternal Aunt Cancer Social History Social History Housing: Apartment Alcohol intake: never Patient Tobacco Use Status: Never used Tobacco e-Cigarette/Vaping Use: Never Used Second Hand Smoke Exposure: No Advance Directives: No Advance Directives Information Provided: No service: No Current occupational status: employed Current occupational exposures/hazards: No Cognitive needs: No Hearing needs: No Vision needs: No Physical Exam ED Vital Signs: Vital Signs - 24 hr 10/04/23 17:29 Temperature 98 F Pulse Rate 81 Respiratory Rate 18 Blood Pressure 127/66 Pulse Oximetry 97 Oxygen Delivery Method Room Air BMI result Body Mass Index 36.6 Const General: healthy appearing, comfortable, no acute distress, alert and awake Nutritional Appearance: well nourished Orientation/consciousness: patient oriented x3 HENMT Other: Mildly erythematous oropharynx without exudates. Bilateral TMs visualized, pearly white. No erythema or effusions, no otorrhea Head: Yes normocephalic and Yes atraumatic Eyes Eyelids: Yes eyelids normal Conjunctivae: conjunctivae normal Sclerae: sclerae normal Corneas: corneas normal Pupils: Equal, round and reactive pupils present EOM: EOMs intact bilaterally Neck Neck: Yes full ROM Resp Effort & Inspection: normal respiratory effort, able to speak in complete sentences and not labored Skin General skin exam: elasticity normal Neuro General: patient oriented x3 Cranial nerves: Yes Equal, round and reactive pupils present and Yes Bilaterally intact EOM present Cognition (Neuro): normal cognition Extrem Other: Moving all extremities well without any obvious deformities Course Course Course Narrative: RME- 23-year-old male presents for evaluation of sore throat, left ear pain and congestion. Plan for swabs Medical Decision Making Medical Decision Making MDM Narrative: 23-year-old male presents for evaluation of flu-like symptoms. Plan for strep testing, viral swabs. Differential Diagnosis Differential Diagnoses: The differential diagnosis associated with the presentation includes Upper respiratory infection Viral syndrome Otitis media Strep pharyngitis Influenza COVID-19 Lab Data Labs: Lab Results 10/04/23 Range/Units 17:33 COVID-19 (KYLE) Negative (Negative) COVID-19 Clin Com See Note Influenza Type A (DONALD) Negative (Negative) Influenza Type B (DONALD) Negative (Negative) Influenza A & B Note See Note S. pyogenes GrpA DONALD Negative (Negative) Discharge Plan Discharge Clinical Impression: Acute upper respiratory infection Patient Disposition: Home, Self-Care Instructions: Upper Respiratory Infection (ED) Additional Instructions: You tested negative for strep throat, influenza, COVID-19 and RSV Your symptoms still most likely related to a virus Ibuprofen/Tylenol for pain Also use saltwater gargles to help with your sore throat Follow-up with your primary doctor Prescriptions: No Action guaifenesin [Mucinex] 600 mg tablet extended release 12hr 600 mg PO Q12H PRN (Reason: congestion) 5 Days Qty: 10 0RF acetaminophen [Tylenol Extra Strength] 500 mg tablet 1,000 mg PO Q6H PRN (Reason: fever or pain) Qty: 20 0RF ibuprofen 400 mg tablet 400 mg PO TID PRN (Reason: fever or pain) Qty: 30 0RF amoxicillin-pot clavulanate 875-125 mg tablet 1 tab PO BID 7 Days Qty: 14 0RF cholecalciferol (vitamin D3) [Vitamin D3] 25 mcg (1,000 unit) capsule 25 mcg PO DAILY Stand Alone Forms: Work/School Release
[2023-10-04 17:59] LABS: COVID-19 Test Negative (Negative); IDNOW Serial# 08D9AD1C; IDNOW Serial# 152EDE1D; IDNOW Serial# 58CA691E; Influenza A Negative (Negative); Influenza B2 Negative (Negative); Strep A Nucleic Acid Negative (Negative)
== END 2023-10-04 18:43 | disposition home or self-care (01) ==
PROVIDERS: Physician Assistant; Emergency Provider Emergency Medicine; PCP Internal Medicine
DX: J06.9 Acute upper respiratory infection, unspecified (principal); J02.9 Acute pharyngitis, unspecified; R05.9 Cough, unspecified; R09.81 Nasal congestion; Z79.899 Other long term (current) drug therapy
CPT/HCPCS: 87502; 87635; 87651; 99282; 99283

== ENCOUNTER 2024-09-19 17:12 | Emergency (ER) | payer SELFPAY ==
--- NOTE | ~2024-09-19 | XR_ITS ---
CLINICAL HISTORY: fall 3 view left ankle Comparison: None Findings: Bones intact. No dislocations. Ankle mortise is in anatomic alignment. No significant loss of joint space, osteophytes, or erosions. No ankle effusion. No radiopaque foreign body. Extensive lateral soft tissue swelling. IMPRESSION: 1. No acute fracture. Lateral soft tissue swelling present.. This document has been electronically signed by: Wilton Mckeon MD on 09/19/2024 18:34:31
[2024-09-19 18:05] VITALS: BP 100/38; PULSE 80; RESP 18; TEMP 36.8; O2SAT 100; BMI 35.4
--- NOTE | 2024-09-19 22:49 | ED_ITS ---
HPI - Extremity Injury (Lower) General Chief Complaint: Extremity Injury, Lower Stated Complaint: fall left foot injury Time Seen by Provider: 09/19/24 22:37 Source: patient Mode of arrival: ambulatory Limitations: no limitations History of Present Illness ED Provider: HPI Narrative: Patient complaining of left ankle pain after coming down steps rolled his left ankle inwards no other injuries other than pain in the left ankle Related Data Home Medications ?Medication ?Instructions ?Recorded ?Confirmed cholecalciferol (vitamin D3) 25 25 mcg PO DAILY 02/27/23 03/06/23 mcg (1,000 unit) capsule (Vitamin D3) Previous Rx's ?Medication ?Instructions ?Recorded amoxicillin 875 mg-potassium 1 tab PO BID 7 days #14 tabs 03/06/23 clavulanate 125 mg tablet acetaminophen 500 mg tablet 1,000 mg (2 x 500 mg) PO Q6H PRN 06/28/23 (Tylenol Extra Strength) fever or pain #20 tabs ibuprofen 400 mg tablet 400 mg PO TID PRN fever or pain 06/28/23 #30 tabs guaifenesin 600 mg tablet, 600 mg PO Q12H PRN congestion 5 07/06/23 extended release 12 hr (Mucinex) days #10 tabs Allergies Allergy/AdvReac Type Severity Reaction Status Date / Time No Known Allergies Allergy Verified 09/19/24 18:07 Review of Systems 2 Review of Systems: Yes all other systems are reviewed and are negative [facility] Past Medical History Medical History Dizziness Physical exam Hypovitaminosis D Tachycardia Chronic sinusitis Mild asthma Obese Surgical History History of tonsillectomy Family History Family History Mother Diabetes Hypertension Father No problems noted. Paternal Grandmother Cancer Paternal Grandfather Cancer Paternal Aunt Cancer Social History Social History Housing: Apartment Alcohol intake: never Patient Tobacco Use Status: Never used Tobacco Smoked in Last 30 Days: No e-Cigarette/Vaping Use: Never Used Second Hand Smoke Exposure: No Use of substances other than those prescribed or required for medical reasons: No Advance Directives: No Advance Directives Information Provided: Yes service: No Current occupational status: employed Current occupational exposures/hazards: No Cognitive needs: No Hearing needs: No Vision needs: No Physical Exam 2 Vital Signs: Vital Signs: Last Vital Signs Temp 98.3 F 09/19/24 18:05 Pulse 80 09/19/24 18:05 Resp 18 09/19/24 18:05 BP 100/38 L 09/19/24 18:05 Pulse Ox 100 09/19/24 18:05 O2 Del Method Room Air 09/19/24 18:05 BMI result Body Mass Index 35.4 Extrem: Ankle/foot/toe images: 1. Soft tissue swelling ankle mortise intact neurovascular intact Medical Decision Making Medical Decision Making MDM Narrative: Left ankle Aircast was applied and patient was given crutches advised to follow up with Orthopedics x-ray negative for fracture Independent Interpretation I performed an independent interpretation of an: Plain X-Ray Radiology Impression Radiologist Impression: nad Discharge Plan Discharge Clinical Impression: Left ankle sprain Patient Disposition: Home, Self-Care Instructions: Ankle Sprain (ED) Additional Instructions: wear ankle Aircast for support ibuprofen for pain No fracture was seen in the x-ray Prescriptions: No Action guaifenesin [Mucinex] 600 mg tablet extended release 12hr 600 mg PO Q12H PRN (Reason: congestion) 5 Days Qty: 10 0RF acetaminophen [Tylenol Extra Strength] 500 mg tablet 1,000 mg PO Q6H PRN (Reason: fever or pain) Qty: 20 0RF ibuprofen 400 mg tablet 400 mg PO TID PRN (Reason: fever or pain) Qty: 30 0RF amoxicillin-pot clavulanate 875-125 mg tablet 1 tab PO BID 7 Days Qty: 14 0RF cholecalciferol (vitamin D3) [Vitamin D3] 25 mcg (1,000 unit) capsule 25 mcg PO DAILY Stand Alone Forms: Work/School Release Print Language: Icelandic
--- NOTE | 2024-09-19 22:56 | ED.GENADULT ---
HPI - General Adult General Chief complaint: Extremity Injury, Lower Stated complaint: fall left foot injury Time Seen by Provider: 09/19/24 22:37 Source: patient Mode of arrival: ambulatory Limitations: no limitations History of Present Illness ED Provider: HPI narrative: Apparently patient was going down stairs rolled his left ankle comes here for pain and swelling of the left ankle lateral malleolus with no deformity patient has pain in ambulation Related Data Home Medications ?Medication ?Instructions ?Recorded ?Confirmed cholecalciferol (vitamin D3) 25 25 mcg PO DAILY 02/27/23 03/06/23 mcg (1,000 unit) capsule (Vitamin D3) Previous Rx's ?Medication ?Instructions ?Recorded amoxicillin 875 mg-potassium 1 tab PO BID 7 days #14 tabs 03/06/23 clavulanate 125 mg tablet acetaminophen 500 mg tablet 1,000 mg (2 x 500 mg) PO Q6H PRN 06/28/23 (Tylenol Extra Strength) fever or pain #20 tabs ibuprofen 400 mg tablet 400 mg PO TID PRN fever or pain 06/28/23 #30 tabs guaifenesin 600 mg tablet, 600 mg PO Q12H PRN congestion 5 07/06/23 extended release 12 hr (Mucinex) days #10 tabs Allergies Allergy/AdvReac Type Severity Reaction Status Date / Time No Known Allergies Allergy Verified 09/19/24 18:07 Review of Systems Review of Systems: Yes all other systems are reviewed and are negative [facility] Past Medical History Medical History Dizziness Physical exam Hypovitaminosis D Tachycardia Chronic sinusitis Mild asthma Obese Surgical History History of tonsillectomy Family History Family History Mother Diabetes Hypertension Father No problems noted. Paternal Grandmother Cancer Paternal Grandfather Cancer Paternal Aunt Cancer Social History Social History Housing: Apartment Alcohol intake: never Patient Tobacco Use Status: Never used Tobacco Smoked in Last 30 Days: No e-Cigarette/Vaping Use: Never Used Second Hand Smoke Exposure: No Use of substances other than those prescribed or required for medical reasons: No Advance Directives: No Advance Directives Information Provided: Yes service: No Current occupational status: employed Current occupational exposures/hazards: No Cognitive needs: No Hearing needs: No Vision needs: No Physical Exam ED Vital Signs: Vital Signs - 24 hr 09/19/24 18:05 09/19/24 23:11 09/19/24 23:12 Temperature 98.3 F 98.9 F 98.9 F Pulse Rate 80 78 78 Respiratory Rate 18 16 16 Blood Pressure 100/38 L 127/65 127/65 Pulse Oximetry 100 98 98 Oxygen Delivery Method Room Air Room Air Room Air BMI result Body Mass Index 35.4 Appearance: Alert. Oriented X3. No acute distress. ENT: Pharynx normal. Oral Mucosa moist Neck: Normal inspection. Neck supple. CVS: Normal heart rate and rhythm. Pulses normal. Respiratory: No respiratory distress. Equal air entry bilateral, no wheezing/rales/rhonchi Skin: Skin warm and dry. Normal skin color. Normal skin turgor. Extremities: No lower extremity edema. Neuro: Oriented X 3. Extrem Ankle/foot/toe images: 1. Tenderness lateral malleolus with soft tissue swelling no deformity neurovascular intact Medical Decision Making Medical Decision Making MDM Narrative: Patient with left ankle sprain aircast was applied patient was given crutches advised to bear weight as tolerated and ibuprofen for pain Independent Interpretation I performed an independent interpretation of an: Plain X-Ray Interpretation: No fracture Discharge Plan Discharge Clinical Impression: Left ankle sprain Patient Disposition: Home, Self-Care Instructions: Ankle Sprain (ED) Additional Instructions: wear ankle Aircast for support ibuprofen for pain No fracture was seen in the x-ray Prescriptions: No Action guaifenesin [Mucinex] 600 mg tablet extended release 12hr 600 mg PO Q12H PRN (Reason: congestion) 5 Days Qty: 10 0RF acetaminophen [Tylenol Extra Strength] 500 mg tablet 1,000 mg PO Q6H PRN (Reason: fever or pain) Qty: 20 0RF ibuprofen 400 mg tablet 400 mg PO TID PRN (Reason: fever or pain) Qty: 30 0RF amoxicillin-pot clavulanate 875-125 mg tablet 1 tab PO BID 7 Days Qty: 14 0RF cholecalciferol (vitamin D3) [Vitamin D3] 25 mcg (1,000 unit) capsule 25 mcg PO DAILY Stand Alone Forms: Work/School Release Interventions: ED Discharge Assessment Last Done: 09/19/24 23:12 Discharge Date/Time: 09/19/24 23:13 Print Language: Swazi
[2024-09-19 23:11] VITALS: BP 127/65; PULSE 78; RESP 16; TEMP 37.2; O2SAT 98
[2024-09-19 23:12] VITALS: BP 127/65; PULSE 78; RESP 16; TEMP 37.2; O2SAT 98
== END 2024-09-19 23:13 | disposition home or self-care (01) ==
PROVIDERS: Emergency Provider Internal Medicine; PCP Internal Medicine
DX: S93.402A Sprain of unspecified ligament of left ankle, initial encounter (principal); X58.XXXA Exposure to other specified factors, initial encounter; Y93.9 Activity, unspecified; Y92.9 Unspecified place or not applicable; Y99.8 Other external cause status
CPT/HCPCS: 73600; 99283; 99284

== ENCOUNTER → 2024-09-19 18:20 | Outpatient (BNV) | payer SELFPAY | PROVIDERS: PCP Internal Medicine; Visit Provider Radiology Diagnostic Radiology | DX: R22.41 Localized swelling, mass and lump, right lower limb (principal) | CPT/HCPCS: 73600 ==

== ENCOUNTER 2024-11-11 14:09 | Outpatient (REF) | payer OTHER, SELFPAY ==
[2024-11-11 16:48] LABS: Influenza A PCR NEGATIVE (Negative); Influenza B PCR NEGATIVE (Negative); Resp Syncy Virus RNA Qual PCR NEGATIVE (Negative); SARS COV2 PCR INHOUSE NEGATIVE (Negative)
== END 2024-11-11 14:10 | disposition home or self-care (01) ==
LOC: HO.LAB 14:09
PROVIDERS: PCP Internal Medicine; Visit Provider Nurse Practitioner Family
DX: J06.9 Acute upper respiratory infection, unspecified (principal)
CPT/HCPCS: 0241U; 87880; 99212

== ENCOUNTER 2024-11-11 14:09 | Outpatient (AMB) | payer OTHER, SELFPAY ==
--- NOTE | 2024-11-11 14:22 | AM.OFFWIN_ITS ---
Intake Vital Signs 11/11/24 14:30 Weight 247 lb BP 114/80 Blood Pressure Location Rt brachial Position Sitting Pulse 113 H Pulse Source Pulse Oximeter Temp 98.6 F Temp Source Oral Pulse Oximetry (%) 98 Oxygen Delivery Method Room Air Intake Visit Reasons: EP Sore throat, fever, nausea, cough, pain Intake Note: Patient here for sore throat,fever, nausea, cough and chest congestion that started a couple of days ago. Patient Tobacco Use Status: Never used Tobacco Allergies No Known Allergies Allergy (Verified 11/11/24 14:38) Do you need a note to return to daycare/school/sports/work: Yes HPI HPI Comments History of Present Illness Details 24 y/o male patient who presents to the walk in clinic with c/o sore throat, Subjective fevers, nausea, cough and chest congestion that started a couple of days ago. [facility] Medical History Dizziness Physical exam Hypovitaminosis D Tachycardia Chronic sinusitis Mild asthma Obese Surgical History History of tonsillectomy Family History Mother Diabetes Hypertension Father No problems noted. Paternal Grandmother Cancer Paternal Grandfather Cancer Paternal Aunt Cancer Social History Housing: Apartment Alcohol intake: never Patient Tobacco Use Status: Never used Tobacco e-Cigarette/Vaping Use: Never Used Second Hand Smoke Exposure: No service: No Current occupational status: employed Current occupational exposures/hazards: No Cognitive needs: No Hearing needs: No Vision needs: No Review of Systems Const All systems reviewed & are unremarkable except as noted in HPI and below Physical Exam Vital Signs: Last Vital Signs Temp 98.6 F 11/11/24 14:30 Pulse 113 H 11/11/24 14:30 BP 114/80 11/11/24 14:30 Pulse Ox 98 11/11/24 14:30 Oxygen Delivery Method Room Air 11/11/24 14:30 Const Orientation/consciousness: patient oriented x3 HEENT Head: Yes normocephalic Ears: external ears normal and TM abnormal bulging bilateral, wth effusion serous, erythematous on the right, with fluid behind the TM bilateral and retracted on the right; not perforated General nose exam: Normal external nose present and Nasal discharge present Face and sinus: Yes sinuses nontender Mouth: moist mucous membranes Throat: Yes uvula midline Resp Effort & Inspection: normal respiratory effort and able to speak in complete sentences Auscultation: clear to auscultation bilaterally, no crackles, no rales, no rhonchi and no wheezes Cardio Rate: regular rate Heart sounds: S1 normal heart sound present and S2 normal heart sound present Neuro General: patient oriented x3, gait normal and moves all extremities Psych Speech and movement: Normal speech and movement present Results AMB Rapid Strep AMB Rapid Strep Negative Last Edit by MELANI Blakely on 11/11/24 14:51 Results Reviewed Results Reviewed: Laboratory Last Values Strep Scn Rapid Clinic Negative 11/11/24 14:50 Assessment & Plan Assessment & Plan (1) Upper respiratory tract infection: Code(s): J06.9 - Acute upper respiratory infection, unspecified Qualifiers: URI type: unspecified viral URI Qualified Code(s): J06.9 - Acute upper respiratory infection, unspecified Plan: Ordered SARs Rapid Strep Negative OTC cold/Flu remedies Acetaminophen for pain relief. (2) Otitis external: Code(s): H60.90 - Unspecified otitis externa, unspecified ear Qualifiers: Chronicity: acute Laterality: right Otitis externa type: unspecified type Qualified Code(s): H60.501 - Unspecified acute noninfective otitis externa, right ear Plan: Ordered Abx Ear Drops. Orders: Orders SARS-CoV2/FLU/RSV Today J06.9 - Acute upper respiratory infection, unspecified AMB Rapid Strep Screen Today Z13.9 - Encounter for screening, unspecified Medications: New pseudoephedrine HCl ER (Sudafed 12 Hour) 120 mg PO Q12H 20 tabs 0RF Nasal congestion J06.9 - Acute upper respiratory infection, unspecified dextromethorphan-guaifenesin 5-100 mg/5 mL (Robitussin Cough-Chest Congestion DM) 10 mL PO Q4-8H PRN 1,000 mL 0RF cough J06.9 - Acute upper respiratory infection, unspecified ciprofloxacin-dexamethasone 0.3-0.1 % 4 drps otic (ears) BID 7 days 7.5 mL 0RF H60.90 - Unspecified otitis externa, unspecified ear Refilled acetaminophen (Tylenol Extra Strength) 1,000 mg (2 x 500 mg) PO Q6H PRN 30 tabs 0RF fever or pain J06.9 - Acute upper respiratory infection, unspecified Discontinued ibuprofen Discontinued Reason: Patient Completed Course 400 mg PO TID PRN 30 tabs 0RF fever or pain guaifenesin ER (Mucinex) Discontinued Reason: Patient Completed Course 600 mg PO Q12H 5 days PRN 10 tabs 0RF congestion Coding Level of Care Code Est Pt Level 4 (83559) Diagnoses Viral upper respiratory tract infection J06.9 URI type: unspecified viral URI Acute otitis externa of right ear, unspecified type H60.501 Chronicity: acute Laterality: right Otitis externa type: unspecified type Time Spent (min) 20
[2024-11-11 14:30] VITALS: BP 114/80; PULSE 113; TEMP 37; O2SAT 98
== END 2024-11-11 15:17 | disposition home or self-care (01) ==
PROVIDERS: PCP Internal Medicine; Visit Provider Nurse Practitioner Family
DX: J06.9 Acute upper respiratory infection, unspecified (principal); H60.501 Unspecified acute noninfective otitis externa, right ear; Z13.9 Encounter for screening, unspecified

== ENCOUNTER 2024-11-29 13:36 | Outpatient (AMB) | payer OTHER, SELFPAY ==
[2024-11-29 13:39] VITALS: BP 124/82; BMI 35.3
--- NOTE | 2024-11-29 13:39 | A.OFFPC_ITS ---
Vital Signs 11/29/24 13:39 Height 5 ft 9 in Weight 239 lb BMI 35.3 BP 124/82 Blood Pressure Location Lt brachial Position Sitting Intake Visit Reasons: annual exam Intake Note: Patient here for an annual physical exam Movie Editor Required: No Accompanied by: Self / Same As Patient Allergies No Known Allergies Allergy (Verified 11/29/24 13:54) Medication List - Last Reconciled 11/29/24 by Noemy Kendrick MD No Known Home Meds Tobacco use date assessed: 11/29/24 Dental Screening Dental Screen Date: 11/29/24 Did you have a dental visit in the last 12 months?: Yes Did you have a dental problem in the last 6 months where you did not have access to dental care?: No Was dental information given to patient?: Patient has dentist HPI HPI Comments History of Present Illness Details The patient is a 24-year-old male presenting with concerns related to his annual physical examination. During the consultation, he was unable to recall recent vaccinations, particularly the tetanus booster, which typically follows a schedule from ages 13 to 15 and continues every decade. Blood work performed in 2021 showed normal results but is due for a repeat due to elapsed time since last testing. There is a notable issue with hearing loss in the right ear. The patient has been directed to an disease and insect control boss previously, but follow-up action is required. Moreover, he has an upcoming echocardiogram appointment set for February 28, which necessitates confirmation because he reported no contact from the cuff setter overlock. The patient's familial background includes diabetes and hypertension on his mother's side, while his father presents no known health issues. His personal history is notable for the absence of smoking, alcohol use, drug allergies, and current medication use. No symptoms such as chest pain, shortness of breath, fever, cough, or any urinary or bowel irregularities have been reported. - Discussed the importance of keeping va ccinations updated, particularly tetanus. - Plan to conduct updated laboratory belem ts due to the lapse since 2021. - Referral made for hearing assessment b y an disease and insect control boss. - Scheduled cardiology evaluation with u pcoming echocardiogram. [facility] Medical History Otitis external Dizziness Physical exam Hypovitaminosis D Tachycardia Chronic sinusitis Mild asthma Obese Surgical History History of tonsillectomy Family History Mother Diabetes Hypertension Father No problems noted. Paternal Grandmother Cancer Paternal Grandfather Cancer Paternal Aunt Cancer Social History Housing: Apartment Alcohol intake: never Patient Tobacco Use Status: Never used Tobacco e-Cigarette/Vaping Use: Never Used Second Hand Smoke Exposure: No service: No Current occupational status: employed Current occupational exposures/hazards: No Cognitive needs: No Hearing needs: No Vision needs: No Questionnaire PHQ-9 Over the last 2 weeks, how often have you been bothered by any of the following problems? 1. Little interest or pleasure in doing things: several days 2. Feeling down, depressed, or hopeless: several days 3. Trouble falling or staying asleep, or sleeping too much: not at all 4. Feeling tired or having little energy: not at all 5. Poor appetite or overeating: not at all 6. Feeling bad about yourself - or that you are a failure or have let yourself or your family down: not at all 7. Trouble concentrating on things, such as reading the newspaper or watching television: not at all 8. Moving or speaking so slowly that other people could have noticed. Or the opposite - being so fidgety or restless that you have been moving around a lot more than usual: not at all 9. Thoughts that you would be better off or of hurting yourself in some way: not at all Total score: 2 Depression Screening Interpretation: Negative Depression Screening Done: Yes 45328 - PHQ-9 Billing: Yes Source: Developed by Drs. Kentrell Smith, Fifi Reis, Bolivar Coyne and colleagues, with an educational kimberly from [employer]. Thrive Questionnaire Date Thrive assessed: 11/22/24 I am a: Patient What is your living situation today?: I have a steady place to live Within the past 12 months, did the food you bought not last and you didn't have the money to get more?: Never true Within the past 12 months, did you worry whether your food would run out before you got money to buy more?: Never true Do you have trouble paying for medicines?: No Do you have trouble getting transportation to medical appointments?: No Do you have trouble paying your heating and electricity bill?: No Do you have trouble taking care of your child, family member or friend?: No Do you have trouble with day-to-day activities such as bathing, preparing meals, shopping, managing finances, etc.?: No Are you currently unemployed and looking for a job?: No Are you interested in more education?: No Please select the resources that you would like help with: None Currently or been in a relationship where the following occur: No concerns reported THRIVE Score: 0 AUDIT C Alcohol Use Questionnaire (AUDIT-C) 1. How often do you have a drink containing alcohol?: Monthly or less 2. How many drinks containing alcohol do you have on a typical day when you are drinking?: 3 or 4 3. How often do you have six or more drinks on one occasion?: Less than monthly Total Score: 3 JUNI-7 AMB Questionnaire JUNI-7 Date JUNI - 7 assessed: 11/29/24 Feeling nervous, anxious, or on edge: 0 = Not at all Not being able to stop or control worryin = Not at all Worrying too much about different things: 1 = Several days Trouble relaxin = Several days Being so restless that it is hard to sit still: 0 = Not at all Becoming easily annoyed or irritable: 0 = Not at all Feeling afraid as if something awful might happen: 0 = Not at all Total JUNI-7 score (0-4 normal; 5-9 mild; 10-14 moderate; 15-21 severe): 2 Source: Developed by Drs. Kentrell Smith, Fifi Reis, Bolivar Coyne and colleagues, with an educational kimberly from [employer]. JUNI-7 Assessment Billing JUNI-7 Assessment Tool: JUNI-7 Assessment 36558 Review of Systems Const All systems reviewed & are unremarkable except as noted in HPI and below Card Denies chest pain at rest, Denies chest pain with activity, Denies edema, Denies irregular heart rhythm, Denies claudication, Denies dyspnea, Denies dyspnea on exertion, Denies orthopnea, Denies paroxysmal nocturnal dyspnea and Denies slow heart rate Resp Denies cough, Denies dyspnea and Denies dyspnea on exertion GI Denies abdominal pain, Denies change in bowel habits, Denies excessive flatus, Denies nausea and Denies vomiting Denies urinary hesitancy, Denies urinary incontinence and Denies urinary urgency Musc Denies atrophy, Denies deformity and Denies limited range of motion Physical exam (Primary Care) Vital Signs: Last Vital Signs BP 124/82 11/29/24 13:39 BMI result Body Mass Index 35.3 BMI Assessment/Plan discussion: High BMI High, discussed plan: lifestyle, weight reduction, dietary and physical activity Tobacco/Smoking Status: Tobacco use Status Tobacco use date assessed 11/29/24 11/29/24 13:45 Patient Tobacco Use Status Never used Tobacco 11/29/24 13:45 e-Cigarette/Vaping Use Never Used 11/29/24 13:45 PHQ-9: PHQ-9 Score PHQ-9: Total score 2 11/29/24 13:45 Depression Screening Interpretation: Negative Thrive Assessment: Date of Thrive Assessment Date Thrive assessed 11/22/24 11/29/24 13:45 Currently or been in a relationship where the following occur: No concerns reported [facility] Head: Yes normal to inspection, Yes normocephalic and Yes atraumatic Ears: external ears normal Eyes General: appearance normal, both eyes and all related structures Eyelids: Yes eyelids normal Conjunctivae: conjunctivae normal Neck Neck: Yes normal visual inspection and Yes supple Resp Effort & Inspection: normal respiratory effort Auscultation: clear to auscultation bilaterally Cardio Jugular venous distension: no JVD Rate: regular rate Rhythm: regular rhythm Heart sounds: S1 normal heart sound present and S2 normal heart sound present GI Inspection: Yes normal to inspection Palpation (GI): Soft to palpation and nontender Auscultation: normal bowel sounds Skin General skin exam: no rashes or lesions noted Neuro General: no focal motor deficits Extrem General: Yes full ROM Psych Appearance: grossly normal Coding Level of Care Code Est Pt Level 3 (23009) Est Pt Prev Care 18-39y(35682) Diagnoses Physical exam Z00.00 Hearing loss, right H91.91 Additional Codes PHQ-9 - 57756 - PHQ-9 Billing: Yes ([id number]) JUNI-7 Assessment Billing - JUNI-7 Assessment Tool: JUNI-7 Assessment 12616 ([id number]) Time Spent (min) 32 Assessment & Plan Assessment & Plan (1) Physical exam: Code(s): Z00.00 - Encounter for general adult medical examination without abnormal findings Category: Medical (2) Hearing loss, right: Code(s): H91.91 - Unspecified hearing loss, right ear Category: Medical Plan Tetanus vaccination needs updating following the patient?s inability to recall the timing of the last booster shot. Laboratory tests will be updated since the previous normals from 2021 are outdated. Follow-up care with an disease and insect control boss for assessment and management of right ear hearing loss is necessary. The patient has been scheduled for an echocardiogram on February 28; confirmation of this appointment is imperative. No immediate medical issues were identified, but it is crucial to monitor due to family medical history concerning diabetes and h ypertension. Patient was informed and verbally consented to the use of an ambient scribe for clinic note documentation during this visit. During the visit, I discussed with the patient the significance of keeping up with vaccinations and the plan to update his laboratory tests given the three- year gap since the last evaluation. We agreed on the need for further audiological assessment to address his hearing loss and ensured that the plan for his pending echocardiogram is in place. The focus remains on preventive care and maintaining a record of any changes due to family histories, such as those of diabetes and hypertension. It was recommended to continuously monitor for related health changes based on these familial factors. Orders: Orders Lipid Panel Today E78.5 - Hyperlipidemia, unspecified, Z00.00 - Encounter for general adult medical examination without abnormal findings Comprehensive [place]. Panel Fast Today Z00.00 - Encounter for general adult medical examination without abnormal findings Referrals Ear/Nose/Throat Referral H91.91 - Unspecified hearing loss, right ear Patient Instructions: - Confirm and attend your audiology appointment for your hearing check. - Make sure to confirm the echocardiogram appointment scheduled for February 28. - Update your vaccination schedule, starting with a tetanus booster. - Follow through with the orders for your updated lab tests. - Notify immediately if any new symptoms arise, especially changes related to breath, chest, or ear health. - Continue avoiding smoking and alcohol as you have been doing.
== END 2024-11-29 14:05 | disposition home or self-care (01) ==
LOC: HO.HMCH 13:36
PROVIDERS: PCP Internal Medicine; Visit Provider Internal Medicine
DX: Z00.00 Encounter for general adult medical examination without abnormal findings (principal); H91.91 Unspecified hearing loss, right ear

== ENCOUNTER → 2024-11-29 13:36 | Outpatient (BNVA) | payer OTHER, SELFPAY | PROVIDERS: PCP Internal Medicine; Visit Provider Internal Medicine | DX: Z00.00 Encounter for general adult medical examination without abnormal findings (principal); H91.91 Unspecified hearing loss, right ear | CPT/HCPCS: 96127; 99212; 99395 ==